=== PATIENT | female | born 1950 | race Caucasian/White ===

== ENCOUNTER → 2016-07-09 | Outpatient (CLI) | payer OTHER ==
[~2016-07-09] MED LIST: ALEVE220 M1 PO; ASPIRIN PO; ASPIRIN81 M2 PO; ATELVIA35 MG PO; B6 PO; BENADRYL PO; CALCIUM 1,2001 EACH PO; CALCIUM PO; CALTRATE 600+D PO; CENTRUM PO; CENTRUM ULTRA1 EACH PO; CHOLESTEROL MED PO; DULERA 100 MCG/13 GM IH; FISH OIL 1,2001 EACH PO; FISH OIL PO; FLEXERIL PO; GABAPENTIN PO; GABAPENTIN600 MG PO; GRALISE600 MG PO; HYDROXYZINE HCL25 M1 PO; LORTAB 7.5-5001 TAB PO; LYRICA25 MG PO; MELOXICAM PO; METOPROLOL PO; METOPROLOL SUCC25 MG PO; MOBIC PO; MULTIPLE VITAMI1 T11 PO; OMEGA-31000 M1 PO; SPIRIVA INH; SYNTHROID PO; SYNTHROID0.1 MG PO; SYNTHROID125 PO; TOPROL XL PO; TRAMADOL PO; VITAMIN B 6 PO
--- NOTE | ~2016-07-09 | US6 ---
[facility] A Service of [facility] & [facility] RADIOLOGY TEXT RESULTS PATIENT: WILFRED BIRMINGHAM LOCATION: [facility] : 54 UNIT #: [id number] AGE: [address]: Elio Grove MD SEX: F ORDER DR: [id number] [facility] [address] [place], [place] [address] [id number] O MR#: [id number] Acc #: [id number] NAME: WILFRED BIRMINGHAM. : 1950 SEX: F STUDY DATE/TIME: 07/09/2016 9:30 UNIT: [facility] ROOM: STUDY DESCRIPTION: US Abdominal Limited Attending Physician: Elio Grove M.D. Ordering Physician: Elio Grove M.D. Primary Care Physician: Inna Vickers M.D. MEDICAL IMAGING REPORT This report is preliminary unless electronic signature is present EXAM Right upper quadrant ultrasound HISTORY Questionable area back in December on liver pain, tenderness a few months on and off. Hyperlipidemia. No surgical history. FINDINGS Real-time ultrasonography right upper quadrant performed. Comparison 12/24/2015. The visualized portions of pancreas are unremarkable. Some portions of body and tail obscured by bowel gas artifact. The liver shows a 2.17 cm x 1.80 cm x 1.68 cm cyst in the right hepatic lobe. It may be slightly increased in size from December 2015 when it measured 1.69 cm x 1.22 cm x 1.54 cm. Some of the apparent change in size could be a reflection of differences in measuring technique. No new or suspicious hepatic focal abnormalities. The liver is normal in size measuring about 12.3 cm in craniocaudal extent. The portal vein is patent with normal direction of flow. The right kidney measures 10.27 cm in greatest length. No hydronephrosis or nephrolithiasis. No cystic or solid mass lesion. No perinephric fluid collection. Gallbladder normal in volume. No gallstones. No gallbladder wall thickening or pericholecystic fluid. No intra or extrahepatic biliary ductal dilatation. Common bile duct measures 3.1 mm in diameter. IMPRESSION 1. Right hepatic lobe cyst. It may be slightly increased in size from 12/24/2015. See measurements in body of report. No new or suspicious focal hepatic parenchymal abnormalities. Remainder of liver unremarkable. 2. Gallbladder and right kidney normal in appearance. 3. Visualized pancreas unremarkable but much of the pancreatic body and tail are obscured by bowel gas artifact. If it would assist in management, pancreas could be further evaluated with CT examination. [facility] A Service of [facility] RADIOLOGY TEXT RESULTS PATIENT: WILFRED BIRMINGHAM LOCATION: [facility] : 54 UNIT #: [id number] AGE: [address]: Elio Grove MD SEX: F ORDER DR: Dictated by... Gui Smith M.D. THIS IS AN ELECTRONICALLY VERIFIED REPORT Gui Smith M.D. at 07/09/2016 7:54 PM Winnie TD: 07/09/2016 11:57 JOB #: [id number] MEDICAL IMAGING REPORT Page 1 of 1 COPY
== END | disposition home or self-care (01) ==
LOC: CGUS 08:29
DX: R10.11 Right upper quadrant pain (principal); K76.89 Other specified diseases of liver
CPT/HCPCS: 76705

== ENCOUNTER 2016-09-07 13:34 | Emergency (ER) | payer OTHER ==
--- NOTE | ~2016-09-07 | US84 ---
[id number] [facility]. [facility] [address] [place], [place] [address] [id number] E MR#: [id number] Acc #: [id number] NAME: WILFRED BIRMINGHAM : 1950 SEX: F STUDY DATE/TIME: 09/07/2016 17:33 UNIT: [facility] ROOM: STUDY DESCRIPTION: US LE Veins Complete Julio Stdy Attending Physician: Hung Mack M.D. Ordering Physician: Ed Doc Catrachito Spear Primary Care Physician: Inna Vickers M.D. MEDICAL IMAGING REPORT This report is preliminary unless electronic signature is present EXAM Bilateral lower extremity venous ultrasound, 09/07/2016. HISTORY Fibromyalgia history. Steroids. Bilateral lower extremity thigh/knee pain 5 days. Fibromyalgia x2 years. TECHNIQUE Venous ultrasound examination of both lower extremities was performed using grayscale, spectral Doppler and color flow Doppler imaging. FINDINGS The examination is negative. There is no evidence of deep venous thrombus from the groin to the lower calf bilaterally. Visualized greater saphenous veins are also patent. IMPRESSION Negative examination. No evidence of lower extremity deep venous thrombosis. Dictated by... Gui Smith M.D. THIS IS AN ELECTRONICALLY VERIFIED REPORT Gui Smith M.D. at 09/08/2016 10:26 PM LEO/adarsh TD: 09/08/2016 00:00 JOB #: [id number] MEDICAL IMAGING REPORT Page 1 of 1 COPY
[~2016-09-07 13:34] MED LIST changes: -ASPIRIN PO; -B6 PO; -CALCIUM PO; -CHOLESTEROL MED PO; -FISH OIL PO; -FLEXERIL PO; -GABAPENTIN PO; -MELOXICAM PO; -METOPROLOL PO; -SPIRIVA INH; -SYNTHROID PO; -TRAMADOL PO
[2016-09-07 17:55] LABS: BASOPHIL# 0.1 X10e3 (0-0.3); BASOPHIL% 0.8 % (0-2.5); DIFF IND NO; EOSINOPHIL# 0.2 X10e3 (0-0.7); EOSINOPHIL% 1.6 % (0.0-7.0); HEMATOCRIT 39.4 % (35.0-45.0); HEMOGLOBIN 12.8 gm/dL (12.0-16.0); LYMPHOCYTE# 2.9 X10e3 (1.0-3.5); MEAN CORPUSCULAR HGB CONC 32.6 g/dL (30-36); MEAN PLATELET VOLUME 8.1 FL (6.5-11.5); MONOCYTE# 1.2 X10e3 (0-1.0); MONOCYTE% 8.3 % (3.0-12.0); NEUTROPHIL# 9.9 X10e3 (1.5-7.1); NEUTROPHIL% 69.3 % (40-75); PLATELET COUNT 329 X10e3 (140-420); RED BLOOD COUNT 4.43 X10e (3.90-5.30); RED CELL DISTRIBUTION WIDTH 13.5 % (11.0-15.5); WHITE BLOOD COUNT 14.3 X10e3 (4.0-10.5)
[2016-09-07 18:25] LABS: ALBUMIN SERUM 3.8 g/dL (3.5-5.0); BILIRUBIN, DIRECT 0.1 mg/dL (0.0-0.2); BILIRUBIN,INDIRECT 0.6 mg/dL (0.0-0.9); BILIRUBIN,TOTAL 0.7 mg/dL (0.2-2.0); BUN/CREATININE RATIO 17.5; CALCIUM SERUM 9.5 mg/dL (8.4-10.2); CREATININE SERUM 0.8 mg/dL (0.6-1.4); POTASSIUM 4.3 mmol/L (3.5-5.1); PROTEIN TOTAL SERUM 7.7 g/dL (6.0-8.3)
== END 2016-09-07 19:16 | disposition home or self-care (01) ==
LOC: CED 13:34
PROVIDERS: Emergency Medicine
DX: M79.1 Myalgia (principal); F17.210 Nicotine dependence, cigarettes, uncomplicated; Z98.890 Other specified postprocedural states
CPT/HCPCS: 36415; 80048; 80076; 82550; 85025; 85652; 86140; 93970; 96372; 99284; J1885

== ENCOUNTER → 2016-09-16 | Outpatient (CLI) | payer OTHER ==
[~2016-09-16] MED LIST changes: +ASPIRIN PO; +B6 PO; +CALCIUM PO; +CHOLESTEROL MED PO; +FISH OIL PO; +FLEXERIL PO; +GABAPENTIN PO; +MELOXICAM PO; +METOPROLOL PO; +SPIRIVA INH; +SYNTHROID PO; +TRAMADOL PO
--- NOTE | ~2016-09-16 | BD1 ---
[facility] A Service of [facility] & [facility] RADIOLOGY TEXT RESULTS PATIENT: WILFRED BIRMINGHAM LOCATION: [facility] : 54 UNIT #: [id number] AGE: [address]: Inna Vickers MD SEX: F ORDER DR: [id number] [facility] [address] [place], [place] [address] [id number] O MR#: [id number] Acc #: [id number] NAME: WILFRED BIRMINGHAM : 1950 SEX: F STUDY DATE/TIME: 09/16/2016 12:52 UNIT: [facility] ROOM: STUDY DESCRIPTION: BD Dexa Bone Dens 1+ Site Attending Physician: Inna Vickers M.D. Ordering Physician: Inna Vickers M.D. Primary Care Physician: Inna Vickers M.D. MEDICAL IMAGING REPORT This report is preliminary unless electronic signature is present EXAM DXA scan 09/16/2016 HISTORY Status post menopause with no hormone replacement therapy. Rheumatoid arthritis. Thyroid medication for 9 years. Smoking history for 48 years. Fracture of L1 vertebral body in last 10 years. Family history of osteoporosis in mother. FINDINGS Bone mineral density in the lumbar spine from L1-L4 was 0.898 g/cm2 which is 1.4 standard deviations below the mean when compared to the young adult reference population which is characteristic of osteopenia. This is 0.3 standard deviations above the mean when compared to the age-matched population. Bone mineral density in the left femoral neck was 0.691 g/cm2 which is 1.4 standard deviations below the mean when compared to the young adult reference population which is characteristic of osteopenia. This is 0 standard deviations from the mean when compared to the age-matched population. IMPRESSION Bone mineral density in the lumbar spine and left hip characteristic of osteopenia. Dictated by... Ortiz Corley M.D. THIS IS AN ELECTRONICALLY VERIFIED REPORT Ortiz Corley M.D. at 09/17/2016 8:10 AM LANCE/bebeto TD: 09/16/2016 15:56 JOB #: [id number] [facility] A Service of [facility] & [facility] RADIOLOGY TEXT RESULTS PATIENT: WILFRED BIRMINGHAM [id number] 54 UNIT #: [id number] AGE: [address]: Inna Vickers MD SEX: F ORDER DR: MEDICAL IMAGING REPORT Page 1 of 1 COPY
== END | disposition home or self-care (01) ==
LOC: CWCC 08-20 09:30
DX: M81.0 Age-related osteoporosis without current pathological fracture (principal)
CPT/HCPCS: 77080

== ENCOUNTER → 2016-11-23 | Outpatient (CLI) | payer OTHER ==
--- NOTE | ~2016-11-23 | CR63 ---
[facility]. [facility] A Service of [facility] & [facility] RADIOLOGY TEXT RESULTS PATIENT: WILFRED BIRMINGHAM LOCATION: [facility] : 54 UNIT #: [id number] AGE: [address]: Claire Henao [place] SEX: F ORDER DR: [id number] [place] [id number] O MR#: [id number] Acc #: [id number] NAME: WILFRED BIRMINGHAM : 1950 SEX: F STUDY DATE/TIME: 11/23/2016 9:59 UNIT: [facility] ROOM: STUDY DESCRIPTION: CR Chest 2 View Attending Physician: Claire Henao A.P.R.N. Referring Physician: Claire Henao A.P.R.N. Ordering Physician: Claire Henao A.P.R.N. Primary Care Physician: Inna Vickers M.D. MEDICAL IMAGING REPORT This report is preliminary unless electronic signature is present. EXAM Chest x-ray, 11/23/2016. INDICATIONS COPD. Shortness of air for 5 years. FINDINGS Two views of the chest compared with 09/20/2012. Cardiac and mediastinal contours are stable. Lungs are emphysematous but clear except for granulomatous calcifications on the right. No pneumothorax. There is lumbar dextroscoliosis. IMPRESSION Emphysema and old granulomatous disease. No acute findings in the chest. Dictated by... Edmar Dubois Jr., M.D. THIS IS AN ELECTRONICALLY VERIFIED REPORT Edmar Dubois Jr., M.D. at 11/24/2016 8:49 AM JHOANA/dat TD: 11/23/2016 22:37 JOB #: [id number] MEDICAL IMAGING REPORT Page 1 of 1
== END | disposition home or self-care (01) ==
LOC: SRAD 09:55
DX: F17.200 Nicotine dependence, unspecified, uncomplicated (principal); J43.9 Emphysema, unspecified; D71 Functional disorders of polymorphonuclear neutrophils
CPT/HCPCS: 71020

== ENCOUNTER 2016-12-24 12:01 | Emergency (ER) | payer OTHER ==
--- NOTE | ~2016-12-24 | CR195 ---
[facility]. [facility] A Service of [facility] & [facility] RADIOLOGY TEXT RESULTS PATIENT: WILFRED BIRMINGHAM LOCATION: [facility] : 54 UNIT #: [id number] AGE: [address]: Frank Mittal MD SEX: F ORDER DR: [id number] [address] [address] [id number] E MR#: [id number] Acc #: [id number] NAME: WILFRED BIRMINGHAM : 1950 SEX: F STUDY DATE/TIME: 12/24/2016 12:16 UNIT: SED ROOM: STUDY DESCRIPTION: Neck Soft Tissue Attending Physician: Frank Mittal M.D. Ordering Physician: Frank Mittal M.D. Primary Care Physician: Inna Vickers M.D. MEDICAL IMAGING REPORT This report is preliminary unless electronic signature is present. EXAM Neck soft tissue technique 12/24/16 12:16 hours. HISTORY 66-year-old woman who swallowed a piece of plastic fork today and 11:00 a.m. Foreign body sensation. Evaluate for foreign body. COMPARISON None. FINDINGS AP and lateral views of the neck with soft tissue technique include the upper chest. There is no retropharyngeal soft tissue swelling. No evidence of epiglottitis or definite foreign body. Benign calcifications are seen in the cartilage. IMPRESSION No foreign body seen. Soft tissues appear normal. Dictated by... Darlene Jaquez M.D. THIS IS AN ELECTRONICALLY VERIFIED REPORT Darlene Jaquez M.D. at 12/25/2016 5:21 PM NELL/tisha TD: 12/24/2016 15:31 JOB #: [id number] MEDICAL IMAGING REPORT Page 1 of 1
--- NOTE | ~2016-12-24 | CR63 ---
[facility] A Service of [facility] RADIOLOGY TEXT RESULTS PATIENT: WILFRED BIRMINGHAM LOCATION: [facility] : 54 UNIT #: [id number] AGE: [address]: Frank Mittal MD SEX: F ORDER DR: [id number] [address] [address] [id number] E MR#: [id number] Acc #: [id number] NAME: WILFRED BIRMINGHAM : 1950 SEX: F STUDY DATE/TIME: 12/24/2016 12:16 UNIT: SED ROOM: STUDY DESCRIPTION: CR Chest 2 View Attending Physician: Frank Mittal M.D. Ordering Physician: Frank Mittal M.D. Primary Care Physician: Inna Vickers M.D. MEDICAL IMAGING REPORT This report is preliminary unless electronic signature is present. EXAM Chest 2 views 12/24/2016, 12:16 hours. HISTORY 66-year-old woman who states that she swallowed a piece of plastic fork today, 11:00 a.m. Foreign body sensation. COMPARISON Chest x-ray 11/23/2016. FINDINGS Upright PA and lateral views of the chest demonstrate normal cardiac, mediastinal contours. There are stable calcified right hilar infrahilar nodes with calcified granuloma in the posterior right lower lobe. The lungs are emphysematous but clear. No radiopaque foreign body is seen in the chest or visualized portions of the upper abdomen. IMPRESSION Stable emphysematous and calcified granulomatous changes as compared to 11/23/2016. There are no acute cardiopulmonary findings. No radiopaque foreign body is seen in the chest or visualized portions of the upper abdomen. Dictated by... Darlene Jaquez M.D. THIS IS AN ELECTRONICALLY VERIFIED REPORT Darlene Jaquez M.D. at 12/25/2016 5:21 PM SMM/tisha TD: 12/24/2016 15:27 JOB #: [id number] [facility] A Service of [facility] RADIOLOGY TEXT RESULTS PATIENT: WILFRED BIRMINGHAM LOCATION: [facility] #: [id number] : 54 UNIT #: [id number] AGE: [address]: Frank Mittal MD SEX: F ORDER DR: MEDICAL IMAGING REPORT Page 1 of 1
[~2016-12-24 12:01] MED LIST changes: -ASPIRIN PO; -B6 PO; -CALCIUM PO; -CHOLESTEROL MED PO; -FISH OIL PO; -FLEXERIL PO; -GABAPENTIN PO; -MELOXICAM PO; -METOPROLOL PO; -SPIRIVA INH; -SYNTHROID PO; -TRAMADOL PO
[2016-12-24] MEDS ORDERED: GABAPENTIN PO (12:05)
[2016-12-24] MEDS ORDERED: CHOLESTEROL MED PO (12:05)
[2016-12-24] MEDS ORDERED: ASPIRIN PO (12:06)
[2016-12-24] MEDS ORDERED: SYNTHROID PO (12:06)
[2016-12-24] MEDS ORDERED: B6 PO (12:06)
[2016-12-24] MEDS ORDERED: CALCIUM PO (12:06)
[2016-12-24] MEDS ORDERED: MELOXICAM PO (12:06)
[2016-12-24] MEDS ORDERED: FISH OIL PO (12:07)
[2016-12-24] MEDS ORDERED: METOPROLOL PO (12:08)
[2016-12-24] MEDS ORDERED: TRAMADOL PO (12:08)
[2016-12-24] MEDS ORDERED: SPIRIVA INH (12:08)
[2016-12-24] MEDS ORDERED: FLEXERIL PO (12:09)
== END 2016-12-24 13:15 | disposition home or self-care (01) ==
LOC: SED 12:01
DX: T18.9XXA Foreign body of alimentary tract, part unspecified, initial encounter (principal); E03.9 Hypothyroidism, unspecified; M19.90 Unspecified osteoarthritis, unspecified site; E78.5 Hyperlipidemia, unspecified; F17.200 Nicotine dependence, unspecified, uncomplicated; Z88.2 Allergy status to sulfonamides; Z88.5 Allergy status to narcotic agent; Z88.6 Allergy status to analgesic agent; Z79.899 Other long term (current) drug therapy; X58.XXXA Exposure to other specified factors, initial encounter
CPT/HCPCS: 70360; 71020; 99283